=== PATIENT | female | born 1990 | race Caucasian/White ===

== ENCOUNTER 2022-12-02 01:12 | Inpatient (IN) ==
[2022-12-02 02:59] LABS: Urine Benzodiazepine Screen None Detected (None Detect); Urine Cannabinoids Screen None Detected (None Detect); Urine Opiates Screen None Detected (None Detect)
[2022-12-02 12:00] LABS: ABS Basophils 0.1 10^3/uL (0.0-0.1); ABS Eosinophils 0.1 10^3/uL (0.0-0.5); ABS Lymphocytes 2.3 10^3/uL (1.0-4.8); ABS Monocytes 1.2 10^3/uL (0.0-0.9); ABS Neutrophils 14.4 10^3/uL (1.5-7.6); Eosinophil % 0.5 %; Hematocrit 41.1 % (35-45); Lymphocyte % 12.7 %; Mean Corpuscular Hemoglobin 29.8 pg (27-33); Mean Corpuscular Hgb Conc 34.1 g/dL (31-36); Mean Corpuscular Volume 87.2 fL (80-97); Mean Platelet Volume 9.4 fL (7.5-11.2); Platelet Count 245 10^3/uL (150-450); Red Blood Count 4.71 10^6/uL (3.63-4.92); Red Cell Distribution Width 13.3 % (12-17)
[2022-12-02] MEDS ORDERED: Oxytocin in LR 20,000 MILLI.UNIT/1,000 ML BAG IV ONE (12:38)
[2022-12-02] MEDS ORDERED: Witch Hazel PAD JAR TOPICAL PRN (13:20)
[2022-12-02] MEDS ORDERED: Oxytocin 10 UNITS/ML 1 ML VIAL IM ONE (13:20)
[2022-12-02] MEDS ORDERED: Dibucaine 1% OINT 28.35 GM TUBE PR PRN (13:20)
[2022-12-02] MEDS ORDERED: Lactated Ringers 1000 ml BAG 1,000 ML IV SCH (14:00)
[2022-12-02] MEDS: Oxytocin in LR 20,000 MILLI.UNIT/1,000 ML BAG IV SCH ×2 (15:48→18:26)
[2022-12-03 07:01] LABS: ABS Basophils 0.1 10^3/uL (0.0-0.1); ABS Eosinophils 0.1 10^3/uL (0.0-0.5); ABS Monocytes 1.4 10^3/uL (0.0-0.9); ABS Neutrophils 11.4 10^3/uL (1.5-7.6); Eosinophil % 0.5 %; Hematocrit 27.8 % (35-45); Hemoglobin 9.6 g/dL (11.5-14.3); Lymphocyte % 18.8 %; Mean Corpuscular Hemoglobin 30.3 pg (27-33); Mean Corpuscular Hgb Conc 34.7 g/dL (31-36); Mean Corpuscular Volume 87.3 fL (80-97); Mean Platelet Volume 8.8 fL (7.5-11.2); Platelet Count 201 10^3/uL (150-450); Red Blood Count 3.18 10^6/uL (3.63-4.92); Red Cell Distribution Width 13.4 % (12-17); White Blood Count 15.9 10^3/uL (3.8-11.8)
[2022-12-03] MEDS ORDERED: Hemorrhoidal OINT 1 TUBE PR PRN (10:45)
[2022-12-04 08:20] VITALS: BP 120/54
== END 2022-12-04 14:44 | disposition home or self-care (01) | DRG 560 ==
LOC: MCHOBOUT 01:12 → MCHOB 02:03
PROVIDERS: ADMIT Midwife; ATTEND Midwife